=== PATIENT | male | born 1980 | race Caucasian/White ===

== ENCOUNTER 2023-08-02 08:56 | Outpatient (CLI) | payer OTHER, SELFPAY | END 2023-08-02 08:57 | disposition home or self-care (01) | LOC: KYNREF 08:57 | PROVIDERS: PCP Nurse Practitioner Family; Visit Provider Nurse Practitioner Family | DX: I10 Essential (primary) hypertension (principal) | CPT/HCPCS: 80048 ==

== ENCOUNTER 2025-02-01 10:45 | Emergency (ER) | payer BC, SELFPAY ==
--- OUTSIDE RECORDS SUMMARY | 2024-12-29 09:35 | XMS_ITS | Encounter Summary ---
Author Organization [facility] Address [address] [address] Care Team Providers Care Athlete Manager Name Role Phone Unavailable Primary Care Provider Unavailabl e Encounter Details Date Type Department Care Team (Late st Contact Info) Description 12/29/2024 9:35 AM CDT Ancillary Procedure [facility] [address] [place] [id number] Provider, Foreign Images [address] [place] [address] Social History Tobacco Use Types Packs/Day Years Used Date Smoking Tobacco: Never Assessed Sex and Gender Information Value Date Recorded Sex Assigned at Not on file Legal Sex Male 5:02 AM CDT Gender Identity Not on file Sexual Orientation Not on file documented as of this encounter Plan of Treatment Not on file documented as of this encounter Procedures Procedure Name Priority Date/Time Associated Diagnosis Comments FOREIGN IMAGE(S) XR FINGER RT Routine 12/29/2024 9:35 AM CDT documented in this encounter Visit Diagnoses Not on filedocumented in this encounter
--- OUTSIDE RECORDS SUMMARY | 2025-01-28 09:15 | XMS_ITS | Encounter Summary ---
Author Organization [facility] Address [address] [place] [address] Care Team Providers Care Excavating Supervisor Name Role Phone Needs Pcp, Assignment Primary Care Provider +- [phone] Reason for Referral * Procedure/Equipment (Routine) - Incomplete Specialty Diagnoses / Procedures Referred By Contac t Referred To Contact Diagnoses Pain of right thumb Procedures XR Finger Rt Thumb 2+ Views Aye Malloy PA-C [address] [place] [address] Phone: tel: fax: Referral ID Status Reason Start Date Expiration Date V isits Requested Visits Authorized [id number] Incomplete 01/28/2025 04/29/2026 1 1 Reason for Visit * Reason Comments CONSULT Work comp a pipe guy t over his right thumb, fracture finger. DOI 12/29/24. * Consult/Transfer Care (Routine) - New Request Specialty Diagnoses / Procedures Referred By Contac t Referred To Contact Orthopedics Diagnoses Displaced fracture of distal phalanx of right thumb, initial encounter for closed fracture Mora Moreno RN [facility] [place] [address] [place] [address] Phone: tel: fax: Referral ID Status Reason Start Date Expiration Date V isits Requested Visits Authorized [id number] New Request 12/29/2024 03/30/2026 1 1 Encounter Details Date Type Department Care Team (Latest Contact Info) Description 01/28/2025 9:15 AM CDT Office Visit [facility] [address] [place] [address] Aye Malloy PA-C [address] [place] [address] Closed fracture of tuft of distal phalanx of right thumb (Primary Dx); Pain of right thumb; Worker's compensation claim administrative problem Social History Tobacco Use Types Packs/Day Years Used Date Smoking Tobacco: Never Assessed Sex and Gender Information Value Date Recorded Sex Assigned at Not on file Legal Sex Male 5:02 AM CDT Gender Identity Not on file Sexual Orientation Not on file documented as of this encounter Patient Instructions * Patient Instructions* Aye Malloy PA-C - 01/28/2025 9:15 AM CDT Thank you for choosing [facility] for your health care visit today. Aye Malloy PA-C Physician Ethnoarchaeologist General Orthopedics [facility] Advanced Imaging Scheduling: To schedule advanced imaging including MRI's, CT Scans, Ultrasounds and Fluoroscopic guided injections at a [facility] location please call [phone]. For [facility] MRI please call [phone]. Medication Requests: Prescriptions are not filled on weekends or on weekdays after 3:00 PM. For all medication refills: Request a refill using MyChart or contact your pharmacy. [facility] [employer] [address] [place], [place] [address] (Phone) Email: [email or web address] What is Know Your Cost? Know Your Cost is a service for patients and patient/members to call and receive personalized cost information and estimates across our care group. The phone number is (COST) Saturday - Saturday 8 AM to 5 PM Release of Information: Radiology/Imaging Health Information Management [address] [facility] [address] [place] [address] [place] [address] (Phone) [phone] (Phone) [employer] documented in this encounter Progress Notes * Aye Malloy PA-C - 01/28/2025 12:00 AM CDT NAME: CAN PEREIRA CSN: [id number] CLINIC NOTE DATE OF SERVICE: 01/28/2025 : 1980 REASON FOR VISIT: Right thumb injury. This is a work comp injury for [email or web address]. His date of injury was 12/29/2024. The patient comes in today for his right thumb. The patient had a crush injury to his right distal thumb on 12/29/2024, when he smashed it with a pipe and had significant pain. He was seen at outside facility and was diagnosed with a crush injury and fracture of the distal tuft of his right thumb. He is right-hand dominant. The patient has been wearing a brace. He states that has been helpful. He notes he has significant limited motion. Pain is improving slowly. He has been working with restrictions. PHYSICAL EXAM: Reveals an edematous IP joint with obvious stiffness and marked reduction of flexionof that IP joint. He has tenderness just below the paronychial fold with anterior-posterior pressure. Medial and lateral compression of the distal tuft does not produce pain. His neurovascular exam was intact. X-rays were taken, independently reviewed and show comminuted mildly offset fracture of the distal phalanx of the thumb. IMPRESSION: Right distal tuft fracture of the thumb, work comp. PLAN: I discussed with Serafin that this will take a couple of more weeks to go from being uncomfortable to being less painful. I recommended a finger tip protector and work restrictions were given. He will follow up with me in 3 weeks for repeat x-rays. All his questions were answered. AYE MALLOY PA-C EMS/AQS /[id number] documented in this encounter Plan of Treatment Not on file documented as of this encounter Results * XR Finger Rt Thumb 2+ Views (01/28/2025 9:26 AM CDT) Anatomical Region Laterality Modality Upper Extremity, Hand Digital Ra diography 01/28/2025 9:19 AM CDT Narrative 01/28/2025 10:06 AM CDT COMPARISON: None. FINDINGS: 4 images). There is a comminuted, mildly offset fracture of the distal phalanx of the thumb, without definite extension into the IP joint. Procedure Note Dennys Cartwright MD - 01/28/2025 COMPARISON: None. FINDINGS: 4 images). There is a comminuted, mildly offset fracture of thedistal phalanx of the thumb, without definite extension into the IPjoint. us Aye Malloy PA-C RAD GD Final Result documented in this encounter Visit Diagnoses Diagnosis Closed fracture of tuft of distal phalanx of right thumb- Primary Pain of right thumb Pain in limb Worker's compensation claim administrative problem Pain of right thumb Pain in limb documented in this encounter Care Teams Excavating Supervisor Relationship Specialty Start Date End Date Needs Pcp, [place] [address] PCP - General 01/22/25 documented as of this encounter
--- OUTSIDE RECORDS SUMMARY | 2025-01-28 09:20 | XMS_ITS | Encounter Summary ---
[facility] Address [address], [place] [address] Care Team Providers Care Customer Service Sales Consultant Name Role Phone Needs Pcp, Assignment Primary Care Provider +- [phone] Reason for Visit * Procedure/Equipment (Routine) - Incomplete Specialty Diagnoses / Procedures Referred By Contac t Referred To Contact Diagnoses Pain of right thumb Procedures XR Finger Rt Thumb 2+ Views Aye Malloy PA-C [address] [place] [address] Phone: tel: fax: Referral ID Status Reason Start Date Expiration Date V isits Requested Visits Authorized [id number] Incomplete 01/28/2025 04/29/2026 1 1 Encounter Details Date Type Department Care Team (Latest Contact Info) Description 01/28/2025 9:20 AM CDT Ancillary Procedure [place] [address] Radiology [address] [place] [address] Aye Malloy PA-C [address] [place] [address] Pain of right thumb Social History Tobacco Use Types Packs/Day Years [...] Procedure Name Priority Date/Time Associated Diagnosis Comments XR FINGER RT THUMB 2+ VIEWS Routine 01/28/2025 9:26 AM CDT Pain of right thumb documented in this encounter Results * XR Finger Rt [...] documented in this encounter Visit Diagnoses Diagnosis Pain of right thumb Pain in limb documented in this encounter Care Teams Customer Service Sales Consultant Relationship Specialty Start Date End Date Needs Pcp, [place] [address] PCP - General 01/22/25 documented as of this encounter
--- OUTSIDE RECORDS SUMMARY | 2025-02-01 10:47 | XMS_ITS | Clinical Summary ---
Author Organization [facility] Address [address] [place] [address] Care Team Providers Care Tetryl Boiling Tub Operator Name Role Phone Needs Pcp, Assignment Primary Care Provider [phone]- [phone] Source Comments You are receiving this document as you are listed as the primary care provider,follow-up provider, or the patient has been referred to you for consultation.This is in compliance with the Medicare andMedicaid EHR Incentive Program,which states Providers who transition their patient to another setting of careor provider of care or refers their patient to another provider of care shouldprovide summary care record for each transition of care or referral. [facility] Medications No known medications Active Problems No known active problems Encounters Date Type Department Care Team Description 01/28/2025 9:20 AM CDT Ancillary Procedure [facility] [address] Radiology [address] [place] [address] Aye Malloy PA-C Pain of right thumb 01/28/2025 9:15 AM CDT Office Visit [facility] [address] [place] [address] Aye Malloy PA-C Closed fracture of tuft of distal phalanx of right thumb (Primary Dx); Pain of right thumb; Worker's compensation claim administrative problem 12/29/2024 9:35 AM CDT Ancillary Procedure Radiology PACS [address] [place] [address] Provider, Foreign Images from Last 3 Months Social History Tobacco Use Types Packs/Day Years Used Date Smoking Tobacco: Never Assessed Sex and Gender Information Value Date Recorded Sex Assigned at Not on file Legal Sex Male 5:02 AM CDT Gender Identity Not on file Sexual Orientation Not on file Plan of Treatment Health Maintenance Due Date Last Done Comments Colon Cancer Screening Plan Due 1978 Hep C Screening (Preventive Services) 1978 HIV Screening (Preventive Services) 1994 Adult Preventive Visit 1996 DTaP/Tdap/Td Vaccine (1 - Tdap) 1997 HepB Vaccine (1) 1997 Cholesterol 2013 COVID-19 Vaccine (1 - 2023-2 5 season) 2024 Influenza Vaccine (Season Ended) 2025 Zoster/Shingles Vaccine (1 of 2) 2028 HepA Vaccine Aged Out No longer eligi ble based on patient's age to complete this topic Hib Vaccine Aged Out No longer eligi ble based on patient's age to complete this topic IPV (Polio) Vaccine Aged Out No longe r eligible based on patient's age to complete this topic MCV4 Vaccine Aged Out No longer eligi ble based on patient's age to complete this topic Meningococcal B Vaccine Aged Out No l onger eligible based on patient's age to complete this topic Pneumococcal Vaccine Aged Out No long er eligible based on patient's age to complete this topic Procedures Procedure Name Priority Date/Time Associated Diagnosis Comments XR FINGER RT THUMB 2+ VIEWS Routine 01/28/2025 9:26 AM CDT Pain of right thumb FOREIGN IMAGE(S) XR FINGER RT Routine 12/29/2024 9:35 AM CDT from Last 3 Months Results * XR Finger Rt Thumb 2+ [...] definite extension into the IPjoint. us Aye ESPITIA GD Final Result from Last 3 Months Insurance [facility] [employer] Care Teams Tetryl Boiling Tub Operator Relationship Specialty Start Date End Date Needs PcpAlcides [facility], [place] [id number] PCP - General 01/22/25
--- NOTE | 2025-02-01 11:51 | W.ED.CHARTNO ---
ED Chart Note Chart Note Details Date: 02/01/25 Details: was in the wrong department. Left without being seen by provider
== END 2025-02-01 11:28 | disposition left against medical advice (07) ==
PROVIDERS: Emergency Provider Student in an Organized Health Care Education/Training Program; PCP Nurse Practitioner Family
DX: Z53.21 Procedure and treatment not carried out due to patient leaving prior to being seen by health care provider (principal)